=== PATIENT | female | born 1955 | race Hispanic/Latino ===

== ENCOUNTER 2018-08-15 15:00 | Emergency (ER) | payer OTHER ==
--- NOTE | 2018-08-15 15:48 | RAD REPORT ---
EXAM DESCRIPTION: CT - Head Brain Wo Cont - 08/15/2018 3:35 pm CLINICAL HISTORY: head injury;Headache COMPARISON: No comparisons TECHNIQUE: All CT scans are performed using dose optimization technique as appropriate and may inclu de automated exposure control or mA/KV adjustment according to patient size. FINDINGS: No intracranial hemorrhage, hydrocephalus or extra-axial fluid collection.No areas of brai n edema or evidence of midline shift. The paranasal sinuses and mastoids are clear. The calvarium is intact. IMPRESSION: No acute intracranial abnormality.
--- NOTE | 2018-08-15 16:40 | EDPHYS ---
Physician Documentation [facility] Name: Seble Tirado Age: 63 yrs Sex: Female : 1955 Arrival Date: 08/15/2018 Time: 15:01 Bed 26 Private MD: Becki Dillon ED Physician Rom Ferro HPI: 08/15 15:29 This 63 yrs old Female presents to ER via Ambulatory with complaints of Fall rn Injury - x2 days ago, Headache. 15:37 Details of fall: The patient fell from an upright position, while walking. Onset: The rn symptoms/episode began/occurred 2 day(s) ago. Associated injuries: The patient sustained injury to the head. Severity of symptoms: At their worst the symptoms were mild, in the emergency department the symptoms are unchanged. 15:37 The patient has not experienced similar symptoms in the past. Reports hit head 2 days rn ago, still having pain in back and front of head, also has a little chest pain, intermittent, when bends over. NO sob/cough. No radiation. No LOC. Not on blood thinners. . Historical: - Allergies: 15:17 PENICILLINS; hj - Home Meds: 15:17 Vitamin D Oral [Active]; vitamin E Oral [Active]; hj - PMHx: 15:17 None; hj - PSHx: 15:17 None; hj - Immunization history:: Adult Immunizations up to date. - Social history:: Smoking status: Patient/guardian denies using tobacco, Patient/guardian denies using alcohol. - Ebola Screening: : Patient negative for fever greater than or equal to 101.5 degrees Fahrenheit, and additional compatible Ebola Virus Disease symptoms Patient denies exposure to infectious person Patient denies travel to an Ebola-affected area in the 21 days before illness onset. - Family history:: not pertinent. - Hospitalizations: : No recent hospitalization is reported. ROS: 15:37 Constitutional: Negative for fever, chills, and weight loss, Eyes: Negative for injury, rn pain, redness, and discharge, Neck: Negative for injury, pain, and swelling, Cardiovascular: Negative for palpitations, and edema, Respiratory: Negative for shortness of breath, cough, wheezing, and pleuritic chest pain, Abdomen/GI: Negative for abdominal pain, nausea, vomiting, diarrhea, and constipation, MS/Extremity: Negative for injury and deformity, Skin: Negative for injury, rash, and discoloration, Neuro: Negative for weakness, numbness, tingling, and seizure. Exam: 15:39 Constitutional: This is a well developed, well nourished patient who is awake, alert, rn and in no acute distress. Head/Face: Normocephalic, atraumatic. Cardiovascular: Regular rate and rhythm with a normal S1 and S2. No pulse deficits. Respiratory: Lungs have equal breath sounds bilaterally, clear to auscultation. No increased work of breathing, no retractions or nasal flaring. Abdomen/GI: Soft, non-tender Skin: Warm, dry with normal turgor. Normal color with no rashes, no lesions, and no evidence of cellulitis. MS/ Extremity: Pulses equal, no cyanosis. Neurovascular intact. Full, normal range of motion. Equal circumference. Neuro: Awake and alert, GCS 15, oriented to person, place, time, and situation. Cranial nerves II-XII grossly intact. Motor strength 5/5 in all extremities. Sensory grossly intact. Cerebellar exam normal. Normal gait. Vital Signs: 15:18 BP 112 / 69; Pulse 72; Resp 18; Temp 98.2(TE); Pulse Ox 100% on R/A; Weight 48.99 kg; hj Height 5 ft. 1 in. (154.94 cm); Pain 1/10; 15:18 Body Mass Index 20.41 (48.99 kg, 154.94 cm) hj MDM: 15:21 Patient medically screened. rn 16:39 Differential diagnosis: closed head injury, contusion, fracture, sprain, strain. Data rn reviewed: vital signs, nurses notes, EKG, radiologic studies, CT scan, plain films, and as a result, I will discharge patient. Counseling: I had a detailed discussion with the patient and/or guardian regarding: the historical points, exam findings, and any diagnostic results supporting the discharge/admit diagnosis, radiology results, the need for outpatient follow up, to return to the emergency department if symptoms worsen or persist or if there are any questions or concerns that arise at home. Response to treatment: the patient's symptoms have mildly improved after treatment, and as a result, I will discharge patient. Special discussion: Based on the patient's history, exam and DX evaluation, there is no indication for emergent intervention or inpatient TX. It is understood by the patient/guardian that if the SXs persist or worsen they need to return immediately for re-evaluation. I discussed with the patient/guardian in detail that at this point there is no indication for admission to the hospital. It is understood, however, that if the symptoms persist or worsen the patient needs to return immediately for re-evaluation. 08/15 15:26 Order name: CT Head Brain wo Cont; Complete Time: 16:39 rn 08/15 15:39 Order name: XRAY Chest Pa And Lat (2 Views); Complete Time: 17:06 rn 08/15 15:26 Order name: EKG; Complete Time: 15:27 rn 08/15 15:26 Order name: EKG - Nurse/Tech; Complete Time: 15:51 rn Administered Medications: No medications were administered Disposition: 08/15/18 16:40 Discharged to Home. Impression: Superficial injury of head. - Condition is Stable. - Discharge Instructions: Head Injury, Adult. - Medication Reconciliation Form, Thank You Letter, Antibiotic Education, Prescription Opioid Use form. - Follow up: Private Physician; When: As needed; Reason: Recheck today's complaints, Re-evaluation by your physician. - Problem is new. - Symptoms have improved. Signatures: Dispatcher [employer] EDMS Kacy Oreilly RN RN aj1 Rom Ferro MD MD rn Joaquin, Henry RN GARY Corrections: (The following items were deleted from the chart) 17:22 16:40 08/15/2018 16:40 Discharged to Home. Impression: Superficial injury of head. aj1 Condition is Stable. Forms are Medication Reconciliation Form, Thank You Letter, Antibiotic Education, Prescription Opioid Use. Follow up: Private Physician; When: As needed; Reason: Recheck today's complaints, Re-evaluation by your physician. Problem is new. Symptoms have improved. rn
--- NOTE | 2018-08-15 16:40 | ER ---
Nurse's Notes [facility] Name: Seble Tirado Age: 63 yrs Sex: Female : 1955 Arrival Date: 08/15/2018 Time: 15:01 Bed 26 Private MD: Becki Dillon Diagnosis: Superficial injury of head Presentation: 08/15 15:14 Presenting complaint: Patient states: i fell last Tuesday, i was walking, i slipped and hj fell and hit the back of my head, denies LOC; now i still have pain on the back of my head; denies nausea and vomiting;. Transition of care: patient was not received from another setting of care. Onset of symptoms was August 15, 2018. Risk Assessment: Do you want to hurt yourself or someone else? Patient reports no desire to harm self or others. Initial Sepsis Screen: Does the patient meet any 2 criteria? No. Patient's initial sepsis screen is negative. Does the patient have a suspected source of infection? No. Patient's initial sepsis screen is negative. Care prior to arrival: None. 15:14 Method Of Arrival: Ambulatory 15:14 Acuity: TIFFANIE 4 hj Triage Assessment: 15:17 General: Appears in no apparent distress. uncomfortable, Behavior is calm, cooperative, hj appropriate for age. Pain: Complains of pain in scalp Pain currently is 1 out of 10 on a pain scale. Historical: - Allergies: 15:17 PENICILLINS; hj - Home Meds: 15:17 Vitamin D Oral [Active]; vitamin E Oral [Active]; hj - PMHx: 15:17 None; hj - PSHx: 15:17 None; hj - Immunization history:: Adult Immunizations up to date. - Social history:: Smoking status: Patient/guardian denies using tobacco, Patient/guardian denies using alcohol. - Ebola Screening: : Patient negative for fever greater than or equal to 101.5 degrees Fahrenheit, and additional compatible Ebola Virus Disease symptoms Patient denies exposure to infectious person Patient denies travel to an Ebola-affected area in the 21 days before illness onset. - Family history:: not pertinent. - Hospitalizations: : No recent hospitalization is reported. Screenin:18 Abuse screen: Denies threats or abuse. Denies injuries from another. Nutritional hj screening: No deficits noted. Tuberculosis screening: No symptoms or risk factors identified. Fall Risk Fall in past 12 months (25 points). Assessment: 16:11 General: Appears in no apparent distress. comfortable, Behavior is calm, cooperative, aj1 agitated. Pain: Complains of pain in scalp Pain does not radiate. Pain currently is 1 out of 10 on a pain scale. Neuro: Level of Consciousness is awake, alert, obeys commands, Oriented to person, place, time, situation, Speech is normal, Facial symmetry appears normal. Cardiovascular: Patient's skin is warm and dry. Respiratory: Airway is patent Respiratory effort is even, unlabored, Respiratory pattern is regular, symmetrical. GI: No signs and/or symptoms were reported involving the gastrointestinal system. : No signs and/or symptoms were reported regarding the genitourinary system. EENT: No signs and/or symptoms were reported regarding the EENT system. Derm: No signs and/or symptoms reported regarding the dermatologic system. Skin is pink, warm \T\ dry. normal. Musculoskeletal: No signs and/or symptoms reported regarding the musculoskeletal system. Circulation, motion, and sensation intact. 17:22 Reassessment: Patient appears in no apparent distress at this time. No changes from aj1 previously documented assessment. Patient and/or family updated on plan of care and expected duration. Pain level reassessed. Patient is alert, oriented x 3, equal unlabored respirations, skin warm/dry/pink. Vital Signs: 15:18 BP 112 / 69; Pulse 72; Resp 18; Temp 98.2(TE); Pulse Ox 100% on R/A; Weight 48.99 kg; hj Height 5 ft. 1 in. (154.94 cm); Pain 1/10; 15:18 Body Mass Index 20.41 (48.99 kg, 154.94 cm) ED Course: 15:01 Patient arrived in ED. as 15:02 Becki Dillon MD is Private Physician. as 15:16 Triage completed. hj 15:18 Arm band placed on right wrist. hj 15:18 Patient has correct armband on for positive identification. Bed in low position. Call hj light in reach. Side rails up X 1. 15:21 Rom Ferro MD is Attending Physician. rn 15:[address] vr 15:36 CT Head Brain wo Cont In Process Unspecified. EDMS 15:36 CT completed. Patient tolerated procedure well. Patient moved back from CT. vr 15:45 EKG done, by business technology professor. reviewed by Rom Ferro MD. sm3 16:09 Kacy Oreilly, RN is Primary Nurse. aj1 16:11 No provider procedures requiring assistance completed. aj1 16:20 XRAY Chest Pa And Lat (2 Views) In Process Unspecified. EDMS 17:22 Patient did not have IV access during this emergency room visit. aj1 Administered Medications: No medications were administered Outcome: 16:40 Discharge ordered by . rn 17:22 Discharged to home ambulatory. aj1 17:22 Condition: good 17:22 Discharge instructions given to patient, family, Instructed on discharge instructions, follow up and referral plans. Demonstrated understanding of instructions, follow-up care. 17:22 Patient left the ED. aj1 Signatures: Dispatcher [employer] EDMS Kacy Oreilly, RN RN aj1 Lizzette Tripathi Roman, MD MD rn Davis, Victoria Eliot Paez RN RN hj Montes, Shakira [facility] Corrections: (The following items were deleted from the chart) 15:19 15:17 Pain: Complains of pain in scalp Pain currently is 4 out of 10 on a pain scale. [facility] 15:20 15:18 Pulse 72bpm; Resp 18bpm; Pulse Ox 100% RA; Temp 98.2F Temporal; 48.99 kg; Height hj 5 ft. 1 in.; BMI: 20.4; Pain 1/10; hj
--- NOTE | 2018-08-15 17:04 | RAD REPORT ---
EXAM DESCRIPTION: RAD - Chest Pa And Lat (2 Views) - 08/15/2018 4:22 pm CLINICAL HISTORY: Fall, chest pain, shortness of breath COMPARISON: None. TECHNIQUE: PA and lateral views of the chest were obtained. FINDINGS: The lungs are mildly fibrotic as a baseline. Patient has an increase in retrosternal space and flattening of the hemidiaphragm on the lateral projection. Posterior costophrenic angle blunting is favored to be from chronic disease rather than small bilateral pleural effusions. No focal lung p arenchymal process. No failure or volume overload. Heart size is normal and central vasculature is within normal limits. No pleural effusion or pneumothorax seen. No acute bone finding. Scoliosis ch anges present. No aortic abnormality. IMPRESSION: Patient has underlying COPD findings with no focal pneumonia or other acute cardiopulmon silvio finding.
--- NOTE | 2018-08-15 18:03 | EKG ---
Test Date: 2018-08-15 Test Time: 15:41:01 High Speed Operator: SKY MEASUREMENT RESULTS: Intervals: Rate: 67 KS: 136 QRSD: 90 QT: 412 QTc: 435 [place]: P: 66 KS: 136 QRS: 81 T: 64 INTERPRETIVE STATEMENTS: Normal sinus rhythm Normal ECG No previous ECG available for comparison Electronically Signed On 08-15-18 18:02:51 LOCKSTITCH LINING SETTER by Brad Ruiz
== END 2018-08-15 17:22 | disposition home or self-care (01) ==
LOC: ER 15:00
DX: S00.90XA Unspecified superficial injury of unspecified part of head, initial encounter (principal); W01.0XXA Fall on same level from slipping, tripping and stumbling without subsequent striking against object, initial encounter; Y93.9 Activity, unspecified; Y92.9 Unspecified place or not applicable; Z88.0 Allergy status to penicillin
CPT/HCPCS: 70450; 71046; 93005; 99284

== ENCOUNTER 2022-09-21 02:07 | Emergency (ER) | payer OTHER ==
--- OUTSIDE RECORDS SUMMARY | 2022-09-21 02:10 | XMS REPORT | Continuity of Care Document ---
:1955 Author Organization [facility] t Address [address] [place] [address] Care Team Providers Name Role Phone Unknown, Physician Primary Care Physician Unavailable SARITA ARCOS Attending Clinician Unavailable LILIYA VERA Attending Clinician Unavailable GARDENIA CASPER Attending Clinician Unavailable Mustapha Attending Clinician Unavailable Shannon Flood Attending Clinician Unavailable Aisha Attending Clinician Unavailable Pcp, Patient Does Not Have A Attending Clinician [phone] Only, Adc Test Attending Clinician Unavailable Ige-Oleg Attending Clinician Unavailable ALEXANDRO FIELDS Attending Clinician Unavailable Alexandro Fields MD Attending Clinician Doctor Unassigned, [place] Attending Clinician Unavailable Mustapha Admitting Clinician Unavailable Shannon Flood Admitting Clinician Unavailable Aisha Admitting Clinician Unavailable Ige-Yenifer_KENDAL Admitting Clinician Unavailable ALEXANDRO FIELDS Admitting Clinician Unavailable Payers Payer Name Policy Type Policy Number Effective Date Expiration Date S marie WELLCARE/WELLCARE [id number] 2020 [facility] 00:00:00 WELLCARE [facility] [id number] 2019 [employer] 00:00:00 (MEDICARE REPLACEMENT/ADVANT AGE - HMO) WELLCARE [facility] [id number] 2019 [employer] 00:00:00 [facility] [id number] 2015 CHOICE 00:00:00 Problems Condition Condition Condition Status Onset Resolution Last Treating Co mments Source Name Details Category Date Date Treatment Clinician Date Helicobact Helicobact Problem Active [facility] er pylori er Pylori 1-15 Fami ly gastrointe Gastrointe 00:00: Pr actic stinal stinal 00 e tract Tract infection Infection Cervical Cervical Problem Active 2019-10 [facility] radiculopa Radiculopa 2-04 Fa manda thy thy 00:00: Practic 00 e Herpes Herpes Problem Active [facility] labialis Labialis 9-04 Family 00:00: Practic 00 e Visual Visual Problem Active [facility] impairment Impairment 9-04 Fa manda 00:00: Practic 00 e Hearing Hearing Problem Active [facility] loss Loss 9-04 Family 00:00: Practic 00 e Lesion of Lesion of Problem Active Sebastián reyes skin of Skin of 9-04 Family face Face 00:00: Practic 00 e Degenerati Degenerati Problem Active [facility] ve joint ve Joint 9-04 Family disease of Disease of 00:00: Pr actic hand Hand 00 e Bone spur Bone Spur Problem Active Sebastián reyes of of 6-09 Family vertebra Vertebra 00:00: Practi c 00 e Gastroesop Gastroesop Problem Active [facility] hageal hageal 6-08 Family reflux Reflux 00:00: Practic disease Disease 00 e Diverticul Diverticul Problem Active [facility] itis itis 6-08 Family 00:00: Practic 00 e At risk At Risk Problem Active [facility] for falls for Falls 6-08 Fami ly 00:00: Practic 00 e Allergies, Adverse Reactions, Alerts Allergy Allergy Status Severity Reaction(s) Onset Inactive Treating Comm ents Source Name Type Date Date Clinician Penicill Propensi Active [facility] ins ty to 06-16 Health adverse 00:00: reaction 00 s No Known DA Active [facility] Allergie 06-19 [place] [facility] PEN[facility]ILL Allergy Active [facility] INS to Family substanc Practic e e NO KNOWN Drug Active [facility] HARRISON Class ity of S [facility] Social History Social Habit Start Date Stop Date Quantity Comments Source History [facility] Alcohol Std Drinks History [facility] Alcohol Binge History [facility] Alcohol Comment Exposure to Not sure [facility] SARS-CoV-2 (event) Alcohol intake 2021-07-23 2021-07-23 Lifetime [place] [facility] 00:00:00 00:00:00 non-drinker (finding) History [facility] 2021-07-23 2021-07-23 1 [facility] Alcohol Frequency 00:00:00 00:00:00 Tobacco use and 2021-06-16 2021-06-16 Smokeless tobacco [facility] exposure 00:00:00 00:00:00 non-user Sex Ass[birth year] At [birth year] F [facility] 00:00:00 00:00:00 Smoking Status Start Date Stop Date Source Never smoked tobacco [facility] Medications Ordered Filled Start Stop Current Ordering Indication Dosage Frequency Signature Comments Components Source Medication Medication Date Date Medication? Clinician (SIG) Name Name pantoprazol 2020-10 Yes 40mg Take 40 mg UT e 0-14 by mouth 1 Health (ProtoNix) 10:13: (one) time 40 MG EC 15 each day tablet before breakfast. Do not crush, chew, or split. sucralfate 2020-10 Yes 1g Q.25D Take 1 g [facility] (Carafate) 0-14 by mouth 4 [facility] l[facility] 1 g tablet 10:13: (four) 15 times a day. alendronate alendronate No alendronat [facility] 70 mg 70 mg e 70 mg Family tablet Take tablet Take tablet Practic 1 tablet 1 tablet Take 1 e every week every week tablet by oral by oral every week route. route. by oral route. estradiol estradiol No estradiol [facility] 0.01% (0.1 0.01% (0.1 0.01% (0.1 Family mg/gram) mg/gram) mg/gram) Pra ctic vaginal vaginal vaginal e cream cream cream INSERT 0.5 INSERT 0.5 INSERT 0.5 GRAM GRAM GRAM VAGINALLY VAGINALLY VAGINALLY DAILY DAILY DAILY ketoconazol ketoconazol No ketoconazo [facility] e 2 % e 2 % le 2 % [facility] topical topical topical Practi c cream APPLY cream APPLY cream e TO RASH ON TO RASH ON APPLY TO FEET TWICE FEET TWICE RASH ON DAILY DAILY FEET TWICE NEEDED NEEDED DAILY UNTIL UNTIL NEEDED FUNGUS FUNGUS UNTIL RESOLVED RESOLVED FUNGUS RESOLVED pantoprazol pantoprazol No pantoprazo [facility] e 40 mg e 40 mg le 40 mg Famil y tablet,theresa tablet,theresa tablet,del Practic yed release yed release ayed e TAKE 1 TAKE 1 release TABLET BY TABLET BY TAKE 1 MOUTH EVERY MOUTH EVERY TABLET BY DAY DAY MOUTH EVERY DAY Plenvu 140 Plenvu 140 No Plenvu 140 [facility] gram-9 gram-9 gram-9 Family gram-5.2 gram-5.2 gram-5.2 Pra ctic gram powder gram powder gram e packs TAKE packs TAKE powder DIRECTED DIRECTED packs TAKE DIRECTED Immunizations Ordered Immunization Filled Immunization Date Status Commen ts Source Name Name influenza, high-dose, influenza, high-dose, 2021-10-23 Completed [facility] quadrivalent quadrivalent 13:26:39 Practice pneumococcal pneumococcal 2021-04-01 Completed [facility] manda polysaccharide PPV23 polysaccharide PPV23 13:22:00 Practice COVID-19, mRNA, COVID-19, mRNA, 2021-01-13 Completed [facility] Family LNP-S, PF, 100 LNP-S, PF, 100 00:00:00 Practi ce mcg/0.5 mL dose mcg/0.5 mL dose (Moderna) (Moderna) COVID-19, mRNA, COVID-19, mRNA, 2020-12-08 Completed [facility] age Family LNP-S, PF, 100 LNP-S, PF, 100 00:00:00 Practi ce mcg/0.5 mL dose mcg/0.5 mL dose (Moderna) (Moderna) influenza, high-dose, influenza, high-dose, 2020-07-28 Completed [facility] quadrivalent quadrivalent 11:49:00 Practice pneumococcal, pneumococcal, 2019-07-09 Completed [facility] unspecified unspecified 00:00:00 Practice formulation formulation influenza, influenza, 2019-07-09 Completed [facility] injectable, injectable, 00:00:00 Practice quadrivalent quadrivalent Vital Signs Vital Name Observation Time Observation Value Comments Source BP Diastolic 2022-06-11 00:00:00 63 mm[Hg] [facility] Height 2022-06-11 00:00:00 61 [in_i] [facility] BMI (Body Mass Index) 2022-06-11 00:00:00 20.4 kg/m2 [facility] BP Systolic 2022-06-11 00:00:00 101 mm[Hg] [facility] Body Weight 2022-06-11 00:00:00 108 [lb_av] [facility] BP Diastolic 2022-04-01 00:00:00 62 mm[Hg] [facility] Height 2022-04-01 00:00:00 61 [in_i] [facility] BMI (Body Mass Index) 2022-04-01 00:00:00 20.4 kg/m2 [facility] Practice BP Systolic 2022-04-01 00:00:00 105 mm[Hg] [facility] Body Weight 2022-04-01 00:00:00 108 [lb_av] [facility] Height 2021-11-24 00:00:00 61 [in_i] [facility] BMI (Body Mass Index) 2021-11-24 00:00:00 20.6 kg/m2 [facility] Body Weight 2021-11-24 00:00:00 109 [lb_av] [facility] BP Diastolic 2021-10-23 00:00:00 66 mm[Hg] [facility] Height 2021-10-23 00:00:00 61 [in_i] [facility] BMI (Body Mass Index) 2021-10-23 00:00:00 20.6 kg/m2 [facility] BP Systolic 2021-10-23 00:00:00 110 mm[Hg] [facility] Body Weight 2021-10-23 00:00:00 109 [lb_av] [facility] Practice Systolic blood 2021-07-23 15:07:00 105 mm[Hg] [facility] Diastolic blood 2021-07-23 15:07:00 68 mm[Hg] [facility] Heart rate 2021-07-23 15:07:00 71 [facility]min [facility] Body temperature 2021-07-23 15:07:00 36.61 Tess [facility] Body height 2021-07-23 15:07:00 [facility].4 cm [facility] weight 2021-07-23 15:07:00 [facility]499 [facility] BMI 2021-07-23 15:07:00 23.09 kg/m2 [facility] BP Diastolic 2021-06-02 00:00:00 84 mm[Hg] [facility] Height 2021-06-02 00:00:00 61 [in_i] [facility] BMI (Body Mass Index) 2021-06-02 00:00:00 20.7 kg/m2 [facility] BP Systolic 2021-06-02 00:00:00 129 mm[Hg] [facility] Body Weight 2021-06-02 00:00:00 109.6 [lb_av] [facility] BP Diastolic 2021-04-01 00:00:00 75 mm[Hg] [facility] Height 2021-04-01 00:00:00 61 [in_i] [facility] BMI (Body Mass Index) 2021-04-01 00:00:00 21 kg/m2 [facility] BP Systolic 2021-04-01 00:00:00 115 mm[Hg] [facility] Body Weight 2021-04-01 00:00:00 111 [lb_av] [facility] BP Diastolic 2021-03-02 00:00:00 69 mm[Hg] [facility] Height 2021-03-02 00:00:00 61 [in_i] [facility] BMI (Body Mass Index) 2021-03-02 00:00:00 21.4 kg/m2 [facility] BP Systolic 2021-03-02 00:00:00 106 mm[Hg] [facility] Body Weight 2021-03-02 00:00:00 113 [lb_av] [facility] BP Diastolic 2021-02-19 00:00:00 57 mm[Hg] [facility] Height 2021-02-19 00:00:00 61 [in_i] [facility] BMI (Body Mass Index) 2021-02-19 00:00:00 21.2 kg/m2 [facility] BP Systolic 2021-02-19 00:00:00 99 mm[Hg] [facility] Body Weight 2021-02-19 00:00:00 112 [lb_av] [facility] BP Diastolic 2020-11-21 00:00:00 73 mm[Hg] [facility] Height 2020-11-21 00:00:00 61 [in_i] [facility] BMI (Body Mass Index) 2020-11-21 00:00:00 21.5 kg/m2 [facility] Practice BP Systolic 2020-11-21 00:00:00 123 mm[Hg] [facility] Practice Body Weight 2020-11-21 00:00:00 114 [lb_av] [facility] Practice BP Diastolic 2020-09-12 00:00:00 64 mm[Hg] [facility] Practice Height 2020-09-12 00:00:00 61 [in_i] [facility] Practice BMI (Body Mass Index) 2020-09-12 00:00:00 21.5 kg/m2 [facility] Practice BP Systolic 2020-09-12 00:00:00 107 mm[Hg] [facility] Practice Body Weight 2020-09-12 00:00:00 114 [lb_av] [facility] Practice Height 2020-06-13 00:00:00 61 [in_i] [facility] Practice BMI (Body Mass Index) 2020-06-13 00:00:00 21.5 kg/m2 [facility] Body Weight 2020-06-13 00:00:00 114 [lb_av] [facility] Practice Height 2020-03-17 00:00:00 61 [in_i] [facility] Practice BMI (Body Mass Index) 2020-03-17 00:00:00 21.5 kg/m2 [facility] Practice Body Weight 2020-03-17 00:00:00 114 [lb_av] [facility] Practice Procedures Procedure Date / Time Performing Clinician Source Performed ankle brachial index 2022-04-01 00:00:00 [facility] DEXA, axial skeleton 2022-04-01 00:00:00 [facility] Colonoscopy & Polypectomy 2022-03-12 00:00:00 Vi llage [facility] Practice bone density 2021-04-01 00:00:00 [facility] Practice electrocardiogram 2021-02-19 00:00:00 [facility] Fa manda Practice US, ABDOMINAL COMPLETE 2021-02-19 00:00:00 [facility] Practice MAMMO, screening, digital, 2020-11-21 [facility] michael Practice Plan of Care Planned Activity Planned Date Details Comments Source Diagnostic Test 2022-06-11 CBC w/ auto diff [facility] Family Pending 00:00:00 [code = CBC w/ auto Practice diff] Diagnostic Test 2022-06-11 CMP, serum or plasma Vill age Family Pending 00:00:00 [code = CMP, serum Practice or plasma] Diagnostic Test 2022-06-11 urinalysis complete, Vill age Family Pending 00:00:00 reflex culture [code Practic e = urinalysis complete, reflex culture] Diagnostic Test 2022-06-11 amylase, serum or [facility] Pending 00:00:00 plasma [code = Practice amylase, serum or plasma] Diagnostic Test 2022-06-11 lipase, serum or [facility] Family Pending 00:00:00 plasma [code = Practice lipase, serum or plasma] Future Appointment 2023-04-01 Shannon Flood [facility] age Family 00:00:[id number], [place] [address] [facility] Practice Encounters Start End Encounter Admission Attending Care Care Encounter Source Date/Time Date/Time Type Type Clinicians Facility Department ID 2021-09-18 Outpatient ISRRAEL, [facility] [id number] [place] 15:40:18 [facility] 2021-07-23 Outpatient VERA, [facility] [id number] [place] 11:07:52 [facility] 2021-07-17 Outpatient VERA, [facility] [id number] [place] 09:21:18 [facility] 2021-04-08 Outpatient PENNIE, [facility] [id number] [place] 10:19:30 [facility] 2022-09-20 2022-09-20 Outpatient Kane-Grace_M VFP VFP [id number] [facility] 00:00:00 00:00:00 [id number] Family Practic e 2022-06-13 2022-06-13 Outpatient Middleton-Grace_M VFP VFP [id number] [facility] 00:00:00 00:00:00 [id number] Family Practic e 2022-06-11 2022-06-11 Outpatient Kane-Grace_M VFP VFP [id number] [facility] 00:00:00 00:00:00 [id number] Family Practic e 2022-06-11 2022-06-11 Shannon O VFP [place] - [id number] [facility] 00:00:00 00:00:00 Diane Flood MD: [id number] Medical - Prac tic Shadow AMRIK_Mari brizuela [facility], [address], [place] [address] , Ph. 2022-04-28 2022-04-28 [facility]patient [facility] [id number] [facility] 08:00:00 08:00:00 Shannon 81 [facility] 2022-04-17 2022-04-17 Outpatient Middleton-Gor_M_ VFP VFP [id number] [facility] 00:00:00 00:00:00 DANNY Family Practic e 2022-04-08 2022-04-08 Outpatient Middleton-Gor_M VFP VFP [id number] [facility] 03:59:00 03:59:00 [id number] Family Practic e 2022-04-01 2022-04-01 Outpatient Middleton-Gor_M VFP VFP [id number] [facility] 12:43:00 12:43:00 [id number] Family Practic e 2022-04-01 2022-04-01 Shannon O VFP [place] - [id number] [facility] 00:00:00 00:00:00 Remigio [facility] Fami ly MD: [id number] Medical - Prac tic Shadow AMRIK_Mari e [facility], [address], [place] [address] , Ph. 2022-03-18 2022-03-18 Outpatient ADÁN Flood [facility] [id number] [facility] 08:00:00 08:30:00 Shannon 43 [facility] 2021-12-31 2021-12-31 Outpatient Middleton-Gor_M VFP VFP [id number] [facility] 09:33:00 09:33:00 [id number] Family Practic e 2021-11-27 2021-11-27 Outpatient Middleton-Gor_M VFP VFP [id number] Village 12:47:00 12:47:00 [id number] Family Practic e 2021-11-27 2021-11-27 Outpatient Middleton-Gor_M_ VFP VFP [id number] [facility] 12:47:00 12:47:00 DANNY [id number] Family Practic e 2021-11-242021-11-24 Outpatient Middleton-Gor_M VFP VFP [id number] [facility] 04:42:00 04:42:00 Family Practic e 2021-11-24 2021-11-24 Shannon O VFP - [id number] [facility] 00:00:00 00:00:00 [facility] LORA: [id number] Medical - Prac tic Shadow VM_HOU_Shad e [facility], [address], [place] [address] , Ph. 2021-11-23 2021-11-23 Outpatient Middleton-Gor_M VFP VFP [id number] [facility] 10:56:00 10:56:00 Family Practic e 2021-10-28 2021-10-28 Outpatient Middleton-Gor_M_ VFP VFP [id number] [facility] 04:27:00 04:27:00 DANNY Family Practic e 2021-10-28 2021-10-28 Outpatient Middleton-Gor_M_ VFP VFP [id number] [facility] 04:27:00 04:27:00 DANNY Family Practic e 2021-10-23 2021-10-23 Outpatient Middleton-Gor_M VFP VFP [id number] [facility] 01:12:00 01:12:00 Family Practic e 2021-10-23 2021-10-23 Shannon O VFP - [id number] [facility] 00:00:00 00:00:00 Remigio [facility] Tripp finnegan MD: [id number] Medical - Prac tic Shadow VM_HOU_Shad e [facility], [address], [place] [address] , Ph. 2021-09-10 2021-09-10 Outpatient Middleton-Gor_M VFP VFP [id number] [facility] 05:40:00 05:40:00 Family Practic e 2021-07-23 2021-07-23 Office VERONICA Vera [facility] [id number] [place] 09:42:22 11:06:[address] [facility] [id number] Bunny BELLA 1 [id number] 2021-06-30 2021-06-30 Outpatient Middleton-Gor_M VFP VFP [id number] [facility] 08:04:00 08:04:00 [id number] Family Practic e 2021-06-30 2021-06-30 Outpatient Middleton-Gor_M VFP VFP [id number] [facility] 08:04:00 08:04:00 [id number] Family Practic e 2021-06-05 2021-06-05 Outpatient Middleton-Gor_M VFP VFP [id number] [facility] 05:24:00 05:24:00 [id number] Family Practic e 2021-06-02 2021-06-02 Outpatient Middleton-Gor_M VFP VFP [id number] [facility] 11:04:00 11:04:00 [id number] Family Practic e 2021-06-02 2021-06-02 Outpatient Middleton-Gor_M VFP VFP [id number] [facility] 11:04:00 11:04:00 [id number] Family Practic e 2021-06-02 2021-06-02 Shannon O VFP [place] - [id number] [facility] 00:00:00 00:00:00 [facility] Tripp finnegan MD: [id number] Medical - Prac tic Shadow VM_BARRYU_Kamlesh e [facility], [address], [place] [address] , Ph. 2021-04-08 2021-04-08 Outpatient Middleton-Gor_M VFP VFP [id number] [facility] 06:26:00 06:26:00 [id number] Family Practic e 2021-04-08 2021-04-08 Outpatient Middleton-Gor_M_ VFP VFP [id number] [facility] 06:26:00 06:26:00 [place] [id number] Family Practic e 2021-04-08 2021-04-08 Outpatient Middleton-Gor_M VFP VFP [id number] [facility] 06:26:00 06:26:00 [id number] Family Practic e 2021-04-06 2021-04-06 Outpatient ADÁN Flood [facility] [id number] [facility] 09:57:00 09:57:00 Shannon 33 Jack rao [facility] 2021-04-01 2021-04-01 Outpatient Middleton-Gor_M VFP VFP [id number] [facility] 01:17:00 01:17:00 [id number] Family Practic e 2021-04-01 2021-04-01 Outpatient Middleton-Gor_M VFP VFP [id number] [facility] 01:17:00 01:17:00 [id number] Family Practic e 2021-04-01 2021-04-01 Shannon O VFP [place] - [id number] [facility] 00:00:00 00:00:00 [facility]ig[facility], [facility] LORA: [id number] Medical - Prac tic Shadow VM_HOU_Shad e Unga [facility], [address], [place] [address] , Ph. 2021-03-05 2021-03-05 Outpatient Middleton-Gor_M_ VFP VFP [id number] [facility] 11:16:00 11:16:00 [place] [id number] Family Practic e 2021-03-05 2021-03-05 Outpatient Middleton-Gor_M_ VFP VFP [id number] [facility] 11:16:00 11:16:00 [place] [id number] Family Practic e 2021-03-05 2021-03-05 Outpatient Middleton-Gor_M VFP VFP [id number] [facility] 11:16:00 11:16:00 [id number] Family Practic e 2021-03-05 2021-03-05 Outpatient Middleton-Gor_M VFP VFP [id number] [facility] 11:16:00 11:16:00 [id number] Family Practic e 2021-03-02 2021-03-02 Outpatient Middleton-Gor_M VFP VFP [id number] [facility] 03:55:00 03:55:00 [id number] Family Practic e 2021-03-02 2021-03-02 Erna N VFP [place] - [id number] [facility] ill[facility] 00:00:00 00:00:00 ROSA ELENA [facility] [address] Medical - Practi c Shadow VM_HOU_Shad e Un[address] ow Unga [facility], [address], [place] [address] , Ph. 2021-02-26 2021-02-26 Outpatient Middleton-Gor_M VFP VFP [id number] [facility] 10:22:00 10:22:00 [id number] Family Practic e 2021-02-19 2021-02-19 Outpatient Middleton-Gor_M VFP VFP [id number] [facility] 02:06:00 02:06:00 [id number] Family Practic e 2021-02-19 2021-02-19 Erna N VFP [place] - [id number] [facility] 00:00:00 00:00:00 ROSA ELENA Bustamante: [facility] [id number] Medical - Practi c Shadow VM_HOU_Shad e [address], [place] [address] , Ph. 2021-01-01 2021-01-01 Letter Pcp, DHAVAL [id number] 00:00:00 00:00:00 (Out) Patient BHAVIN [id number] Does [facility] [id number] Have A [id number] 2020-12-31 2020-12-31 Laboratory Only, [facility] [id number] 07:56:40 08:11:40 Only Test [place] [id number] [place] [id number] [place] [id number] 2020-12-31 2020-12-31 Outpatient R [facility] [id number] Univers 08:00:00 08:00:00 ity of [facility] 2020-12-24 2020-12-24 Outpatient Middleton-Gor_M VFP VFP [id number] [facility] 09:40:00 09:40:00 [id number] Family Practic e 2020-12-24 2020-12-24 Outpatient Middleton-Gor_M VFP VFP [id number] [facility] 09:40:00 09:40:00 [id number] Family Practic e 2020-12-24 2020-12-24 Outpatient Middleton-Gor_M VFP VFP [id number] [facility] 09:40:00 09:40:00 [id number] Family Practic e 2020-12-24 2020-12-24 Outpatient EL Remigio, HCAPM HCAPM [id number] [facility] 03:58:48 03:58:48 Shannon rivera [facility] 2020-11-25 2020-11-25 Outpatient Kane-Grace_M_ VFP VFP [id number] [facility] 07:19:00 07:19:00 [facility] [id number] Family Practic e 2020-11-21 2020-11-21 Outpatient Kane-Grace_M VFP VFP [id number] [facility] 04:54:00 04:54:00 [id number] Family Practic e 2020-11-21 2020-11-21 Shannon O VFP [place] - [id number] [facility] 00:00:00 00:00:00 Daine Flood MD: [id number] Medical - Prac tic Shadow VM_ROD_Enocd e [facility], [address] [address] , Ph. 2020-09-24 2020-09-24 Outpatient Kane-Grace_M_ VFP VFP [id number] [facility] 01:34:00 01:34:00 [facility] [id number] Family Practic e 2020-09-24 2020-09-24 Outpatient Kane-Grace_M_ VFP VFP [id number] [facility] 01:34:00 01:34:00 [facility] [id number] Family Practic e 2020-09-16 2020-09-16 Outpatient Kane-Grace_M VFP VFP [id number] [facility] 04:59:00 04:59:00 [id number] Family Practic e 2020-09-16 2020-09-16 Outpatient Kane-Gor_M VFP VFP [id number] [facility] 04:59:00 04:59:00 [id number] Family Practic e 2020-09-12 2020-09-12 Outpatient Kane-Gor_M_ VFP VFP [id number] [facility] 12:56:00 12:56:00 [facility] [id number] Family Practic e 2020-09-12 2020-09-12 Shannon O VFP [place] - [id number] [facility] 00:00:00 00:00:00 Diane Flood MD: [id number] Medical - Pract ic [place] VM_HOU_East e , [address], ([facility]) [place] [address] , Ph. 2020-09-10 2020-09-10 Outpatient Ige-Odunuga VFP VFP [id number] [facility] 02:49:00 02:49:00 _Marty_KENDAL [id number] Family Practic e 2020-09-10 2020-09-10 Vanesa VFP [place] - [id number] V illage 00:00:00 00:00:00 [facility] Tripp Gross Medical - Practi PIPE FITTER SUPERVISOR MAINTENANCE: [id number] VM_HOU_V@H_ e [facility], [facility] [address], [place] [address] , Ph. 2020-08-11 2020-08-11 Outpatient Middleton-Gor_M VFP VFP [id number] [facility] 07:26:00 07:26:00 [id number] Family Practic e 2020-08-11 2020-08-11 Outpatient [place]-Gor_M VFP VFP [id number] 07:26:00 07:26:00 [id number] Family Practic e 2020-08-11 2020-08-11 Outpatient Middleton-Gor_M VFP VFP [id number] [place] 07:26:00 07:26:00 [id number] Family Practic e 2020-07-28 2020-07-28 Outpatient Middleton-Gor_M_ VFP VFP [id number] [facility] 12:09:00 12:09:00 [facility] [id number] Family Practic e 2020-07-28 2020-07-28 Shannon O VFP [place] - [id number] [facility] 00:00:00 00:00:00 [facility] sivan MD: [id number] Medical - Pract [facility]_HOU_[place] [address], ([facility]) [place] [address] , Ph. 2020-07-14 2020-07-14 Outpatient Middleton-Gor_M VFP VFP [id number] [facility] 03:06:00 03:06:00 [id number] Family Practic e 2020-07-14 2020-07-14 Outpatient Middleton-Gor_M VFP VFP [id number] [facility] 03:06:00 03:06:00 [id number] Family Practic e 2020-06-27 2020-06-27 Outpatient Middleton-Gor_M_ VFP VFP [id number] [place] 09:50:00 09:50:00 JESSEE [id number] Family Practic e 2020-06-25 2020-06-25 Outpatient Ige-Odunuga VFP VFP [phone] [place] 03:04:00 03:04:00 _YAMILA [id number] Family Practic e 2020-06-23 2020-06-23 Outpatient Ige-Odun[place] VFP VFP [phone] [facility] 11:19:00 11:19:00 _YAMILA [id number] Family Practic e 2020-06-18 2020-06-18 Outpatient Middleton-Gor_M_ VFP VFP [phone] [place] 02:39:00 02:39:00 JESSEE 53216 Family Practic e 2020-06-16 2020-06-16 Outpatient Middleton-Gor_M_ VFP VFP [phone] [place] 08:21:00 08:21:00 JESSEE 70874 Family Practic e 2020-06-13 2020-06-13 Outpatient Middleton-Gor_M_ VFP VFP [phone] [place] 02:03:00 02:03:00 JESSEE 43711 Family Practic e 2020-06-13 2020-06-13 Shannon O VFP [place] - [id number] [facility] 00:00:00 00:00:00 Remigio, [facility] Fami sivan LORA: [id number] Medical - Pract [place] [address], ([place] [address] , Ph. 2020-06-06 2020-06-06 Outpatient Middleton-Gor_M_ VFP VFP [phone] [facility] 01:40:00 01:40:00 JESSEE [id number] Family Practic e 2020-06-06 2020-06-06 Outpatient Ige-Odun[place] VFP VFP [id number] [facility] 01:40:00 01:40:00 _YAMILA [id number] Family Practic e 2020-06-06 2020-06-06 Outpatient Middleton-Gor_M_ VFP VFP [phone] [facility] 01:40:00 01:40:00 JESSEE [id number] Family Practic e 2020-06-03 2020-06-03 Outpatient Mustapha_ VFP VFP [phone] [facility] 04:58:00 04:58:00 WAG 37610 Family Practic e 2020-04-07 2020-04-07 Outpatient Ige-Odunuga VFP VFP [phone] [facility] 10:36:00 10:36:00 _J_AH 74858 Family Practic e 2020-03-20 2020-03-20 Outpatient Ige-Odunuga VFP VFP [phone] [facility] 07:58:00 07:58:00 _J_AH 66628 Family Practic e 2020-03-17 2020-03-17 Kyala O VFP [place] - [id number] [facility] 00:00:00 00:00:00 [place] Jesús betancur PIPE FITTER SUPERVISOR MAINTENANCE: Medical - Practi c 9235 Es VM_HOU_V@H_ e [facility], [place] [address], [place] [address] , Ph. 2020-03-10 2020-03-10 Outpatient Ige-Odunuga VFP VFP [phone] [facility] 04:12:00 04:12:00 _J_AH 42610 Family Practic e 2019-12-28 2019-12-28 Outpatient Ige-Odunuga VFP VFP [phone] [facility] 12:37:00 12:37:00 _J_AH 75188 Family Practic e 2019-11-16 2019-11-16 [facility] [id number] [facility] 11:15:33 23:59:00 ity of [facility] 2019-11-16 2019-11-16 [facility] [id number] 09:30:00 23:59:00 Encounter Blair Varela [id number] [place] [id number] [place] [id number] 2019-11-16 2019-11-16 Orders Doctor DHAVAL [id number] 00:00:00 00:00:00 Only Unassigned, BHAVIN [id number] [place] [facility] [id number] [id number] [id number] Results Test Description Test Time Test Comments Results Result Comments Source Helicobacter pylori [Presence] in Stomach by urea alhaji th test 2021-10-25 00:00:00 Test Item Value Reference Range Interpretation Comme nts helicobacter pylori, urea breath test (test code = not detected not detected helicobacter pylori, urea breath test) [facility] + occult blood screening, [id number] 11:50:00 Test Item Value Reference Range Interpretation Comments cologuard result reportable (test negative not applicable code = cologuard result reportable) [facility] W Reflex Culture panel - Urine 2021-02-21 11:52:00 Test Item Value Reference Range Interpretation Comments color (test code = yellow yellow color) appearance (test code clear clear = appearance) specific gravity 1.003 1.001-1.035 (test code = specific gravity) pH (test code = pH) > or = 8.5 5.0-8.0 A glucose (test code = negative negative glucose) bilirubin (test code negative negative = bilirubin) ketones (test code = negative negative ketones) occult blood (test negative negative code = occult blood) protein (test code = negative negative protein) nitrite (test code = negative negative nitrite) leukocyte esterase trace negative A (test code = leukocyte esterase) WBC (test code = WBC) none seen See_Comment [Auto mated message] The system [facility] generated this result transmitted ref erence range: < or = 5 . The reference range was not used to int erpret this result as normal/abnormal . RBC (test code = RBC) none seen See_Comment [Auto mated message] The system [facility] generated this result transmitted ref erence range: < or = 2 . The reference range was not used to int erpret this result as normal/abnormal . squamous epithelial none seen See_Comment [Automa sean message] cells (test code = The syste m which squamous epithelial generate d this result cells) transmitted ref erence range: < or = 5 . The reference range was not used to int erpret this result as normal/abnormal . bacteria (test code = none seen none seen bacteria) hyaline cast (test none seen none seen code = hyaline cast) [facility] identified in Urine by [id number] 11:52:00Reflexive Urine CultureViSur[facility] HospitalBacteria identified in Urine by [id number] 11:52:00 Test Item Value Reference Range Interpretation Comments culture, urine, routine (test code = see note culture, urine, routine) [facility] 2000 panel - Serum or Plasma 2021-02-20 13:16:00 Test Item Value Reference Range Interpretation Comments ALT (test code = ALT) 13 U/L 0-55 AST (test code = AST) 19 U/L 5-34 BUN (test code = BUN) 10.9 mg/dL 9.8-25.0 alk phos (test code = alk phos) 95 unit/L 40-150 glucose (test code = glucose) 91 mg/dL 70-99 albumin (test code = albumin) 4.2 g/dL 3.4-5.1 creatinine (test code = 0.70 mg/dL 0.57-1.11 creatinine) eGFR non- (test >60 code = eGFR non-) total bilirubin (test code = 0.6 mg/dL 0.2-1.2 total bilirubin) eGFR - (test >60 code = eGFR - ) sodium (test code = sodium) 141 mEq/L 135-145 potassium (test code = potassium) 5.1 mEq/L 3.5-5.3 chloride (test code = chloride) 107 mmol/L 98-110 total protein (test code = total 7.5 g/dL 6.1-8.2 protein) calcium (test code = calcium) 9.7 mg/dL 8.4-10.4 CO2 (test code = CO2) 30.4 mmol/L 20.0-32.0 anion gap (test code = anion gap) 4 calc [facility] Differential panel - [id number] 12:54:00 Test Item Value Reference Range Interpretation Comments WBC (test code = WBC) 7.55 x10*3/?L 3.98-10.04 RBC (test code = RBC) 5.22 10*12/L 3.93-5.22 hemoglobin (test code = 14.60 g/dL 11.20-15.70 hemoglobin) hematocrit (test code = 45.6 % 34.1-44.9 H hematocrit) MCV (test code = MCV) 87.4 fL 80.0-100.0 MCH (test code = MCH) 28.0 pg 25.6-32.2 MCHC (test code = MCHC) 32.0 g/dL 32.2-35.5 L RDW-SD (test code = RDW-SD) 42.6 fL 36.4-46.3 platelet count (test code = 355.0 k/uL 182.0-369.0 platelet count) MPV (test code = MPV) 11.1 fL 7.5-11.5 neut% (test code = neut%) 55.5 % 34.0-71.1 lymph% (test code = lymph%) 34.4 % 19.3-51.7 mon% (test code = mon%) 6.6 % 4.7-12.5 eos% (test code = eos%) 2.4 % 0.7-5.8 baso% (test code = baso%) 0.8 % 0.1-1.2 neut# (test code = neut#) 4.2 x10*3/?L 1.6-6.1 lymph# (test code = lymph#) 2.6 x10*3/?L 1.2-3.7 mon# (test code = mon#) 0.5 x10*3/?L 0.2-0.9 eos# (test code = eos#) 0.18 x10*3/?L 0.04-0.36 baso# (test code = baso#) 0.06 x10*3/?L 0.01-0.08 [facility] [Enzymatic activity/volume] in Serum or Plasma 2021-02-20 08:45:00 Test Item Value Reference Range Interpretation Comments lipase (test code = lipase) 40 U/L 7-60 [facility] [Enzymatic activity/volume] in Serum or Plasma 2021-02-20 08:45:00 Test Item Value Reference Range Interpretation Comments amylase (test code = amylase) 74 U/L 21-101 [facility]
[2022-09-21] MEDS ORDERED: ONDANSETRON 4 MG/2 ML VIAL ONE (02:29)
[2022-09-21] MEDS ORDERED: NA CHLORIDE 0.9% 1,000 ML ONE (02:30)
[2022-09-21 02:58] LABS: Absolute Lymphocytes (CBC) 0.6 K/uL (0.7-4.9); Hematocrit 39.2 % (36.0-45.0); Lymphocytes % 7.6 % (15.3-44.8); MPV 8.3 fL (7.6-11.3); RBC Red Blood Cell Count 4.61 M/uL (3.86-4.86)
[2022-09-21 03:15] LABS: Albumin 3.5 g/dL (3.4-5.0); Bilirubin Total 0.3 mg/dL (0.2-1.0); Potassium 3.3 mmol/L (3.5-5.1); Protein, Total 7.5 g/dL (6.4-8.2)
[2022-09-21 03:53] LABS: SARS-COV-2 RT PCR POSITIVE (NEGATIVE)
[2022-09-21 05:14] LABS: Urine Blood Trace-intact (Negative); Urine Glucose Negative (Negative); Urine Protein Negative (Negative); Urine Specific Gravity 1.015 (1.005-1.030); Urine pH 8.5 (5.0-7.0)
--- NOTE | 2022-09-21 05:21 | ER ---
Nurse's Notes [facility] Name: Seble Tirado Age: 67 yrs Sex: Female : 1955 Arrival Date: 09/21/2022 Time: 02:10 Bed 8 Private MD: Diagnosis: SARS-associated coronavirus as the cause of diseases classified elsewhere;Vomiting, unspecified;Dehydration Presentation: 09/21 02:14 Chief complaint: EMS states: Pt called EMS reporting N/V around 2300 after eating jb4 chick-cinthia-a. Pt reports vomiting multiple times tonight, is unsure of how many. Coronavirus screen: At this time, the client does not indicate any symptoms associated with coronavirus-19. Ebola Screen: No symptoms or risks identified at this time. Initial Sepsis Screen: Does the patient meet any 2 criteria? No. Patient's initial sepsis screen is negative. Does the patient have a suspected source of infection? No. Patient's initial sepsis screen is negative. Risk Assessment: Do you want to hurt yourself or someone else? Patient reports no desire to harm self or others. Onset of symptoms was September 20, 2022. Transition of care: patient was not received from another setting of care. 02:14 Method Of Arrival: EMS: [facility] jb4 02:14 Acuity: TIFFANIE 3 jb4 Historical: - Allergies: 02:16 PENICILLINS; jb4 - PMHx: 02:16 arthritis; jb4 - Family history:: not pertinent. - Hospitalizations: : No recent hospitalization is reported. Screenin:10 Abuse screen: Denies threats or abuse. Nutritional screening: No deficits noted. jb4 Tuberculosis screening: No symptoms or risk factors identified. Fall Risk Assessment: 02:17 General: Appears in no apparent distress. comfortable, Behavior is calm, cooperative, jb4 appropriate for age. Pain: Denies pain. Neuro: Level of Consciousness is awake, alert, obeys commands, Oriented to person, place, time, situation. Cardiovascular: Patient's skin is warm and dry. Respiratory: Airway is patent Trachea midline Respiratory effort is even, unlabored, Respiratory pattern is regular, symmetrical. GI: Abdomen is flat, non-distended, Abd is soft and non tender X 4 quads. Reports nausea, vomiting. : No signs and/or symptoms were reported regarding the genitourinary system. EENT: No signs and/or symptoms were reported regarding the EENT system. Derm: Skin is intact, Skin is pink, warm \T\ dry. Musculoskeletal: Circulation, motion, and sensation intact. Range of motion: intact in all extremities. 03:20 Reassessment: Patient appears in no apparent distress at this time. Patient and/or jb4 family updated on plan of care and expected duration. Pain level reassessed. Patient is alert, oriented x 3, equal unlabored respirations, skin warm/dry/pink. 03:52 Reassessment: Patient appears in no apparent distress at this time. Patient and/or jb4 family updated on plan of care and expected duration. Pain level reassessed. Patient is alert, oriented x 3, equal unlabored respirations, skin warm/dry/pink. 05:00 Reassessment: Patient appears in no apparent distress at this time. Patient and/or jb4 family updated on plan of care and expected duration. Pain level reassessed. Patient is alert, oriented x 3, equal unlabored respirations, skin warm/dry/pink. 05:37 Reassessment: Patient appears in no apparent distress at this time. Patient and/or jb4 family updated on plan of care and expected duration. Pain level reassessed. Patient is alert, oriented x 3, equal unlabored respirations, skin warm/dry/pink. Vital Signs: 02:14 BP 123 / 67; Pulse 88; Resp 16; Temp 99.5(O); Pulse Ox 100% on R/A; Weight 49.44 kg jb4 (R); Height 5 ft. 1 in. (154.94 cm) (R); Pain 0/10; 03:00 BP 115 / 65; Pulse 87; Resp 16; Pulse Ox 100% on R/A; jb4 03:53 BP 113 / 62; Pulse 87; Resp 16; Pulse Ox 99% on R/A; jb4 05:30 BP 105 / 59; Pulse 85; Resp 16; Pulse Ox 98% on R/A; jb4 02:14 Body Mass Index 20.60 (49.44 kg, 154.94 cm) jb4 ED Course: 02:10 Patient arrived in ED. rn 02:10 Rom Ferro MD is Attending Physician. rn 02:10 Patient has correct armband on for positive identification. Placed in gown. Bed in low jb4 position. Call light in reach. Side rails up X 1. 02:16 Triage completed. jb4 02:16 Arm band placed on right wrist. jb4 02:18 Jaycob Cole, RN is Primary Nurse. jb4 02:27 COVID-19/FLU A+B Sent. jb4 02:40 Initial lab(s) drawn, by me. Inserted saline lock: 20 gauge in right antecubital area, jb4 using aseptic technique. Blood collected. 03:43 CT Abd/Pelvis - IV Contrast Only In Process Unspecified. EDMS 05:39 No provider procedures requiring assistance completed. IV discontinued, intact, jb4 bleeding controlled, No redness/swelling at site. Pressure dressing applied. Administered Medications: 02:43 Drug: NS 0.9% 1000 ml Route: IV; Rate: 1 bolus; Site: right antecubital; jb4 04:00 Follow up: Response: No adverse reaction; IV Status: Completed infusion; IV Intake: jb4 1000ml 02:43 Drug: Zofran (Ondansetron) 4 mg Route: IVP; Site: right antecubital; jb4 03:15 Follow up: Response: No adverse reaction; Marked relief of symptoms; Nausea is decreasedjb4 Medication: 05:30 VIS not applicable for this client. jb4 Intake: 04:00 IV: 1000ml; Total: 1000ml. jb4 Outcome: 05:21 Discharge ordered by . rn 05:40 Discharged to home ambulatory. jb4 05:40 Condition: stable 05:40 Discharge instructions given to patient, Instructed on discharge instructions, follow up and referral plans. medication usage, Demonstrated understanding of instructions, follow-up care, medications, Prescriptions given X 1. 05:40 Patient left the ED. jb4 Signatures: Dispatcher [employer] EDRI Rom Ferro MD MD rn Bryson, James, RN RN jb4 Corrections: (The following items were deleted from the chart) 05:40 02:40 Discharged to home ambulatory, jb4 jb4 05:40 02:40 Condition: stable jb4 jb4 05:40 02:40 Discharge instructions given to patient, Instructed on discharge instructions, jb4 follow up and referral plans. medication usage, Demonstrated understanding of instructions, follow-up care, medications, Prescriptions given X 1, jb4
--- NOTE | 2022-09-21 05:21 | EDPHYS ---
Physician Documentation [facility] Name: Seble Tirado Age: 67 yrs Sex: Female : 1955 Arrival Date: 09/21/2022 Time: 02:10 Bed 8 Private MD: ED Physician Rom Ferro HPI: 09/21 02:41 This 67 yrs old Female presents to ER via EMS with complaints of rn nausea/vomiting. 02:41 The patient presents to the emergency department with nausea, vomiting, abdominal pain. rn Onset: The symptoms/episode began/occurred yesterday. Possible causes: unknown. The symptoms are aggravated by nothing. The symptoms are alleviated by nothing. Associated signs and symptoms: Pertinent positives: abdominal pain, nausea, vomiting, Pertinent negatives: fever, GI bleeding. Severity of symptoms: At their worst the symptoms were moderate in the emergency department the symptoms are unchanged. The patient has not experienced similar symptoms in the past. The patient has not recently seen a physician. Historical: - Allergies: 02:16 PENICILLINS; jb4 - PMHx: 02:16 arthritis; jb4 - Family history:: not pertinent. - Hospitalizations: : No recent hospitalization is reported. ROS: 02:41 Constitutional: Negative for fever, + for chills Eyes: Negative for injury, pain, rn redness, and discharge, Neck: Negative for injury, pain, and swelling, Cardiovascular: Negative for chest pain, palpitations, and edema, Respiratory: Negative for shortness of breath, cough, wheezing, and pleuritic chest pain, Abdomen/GI: + abd pain and nausea/vomiting Back: Negative for injury and pain, MS/Extremity: Negative for injury and deformity, Skin: Negative for injury, rash, and discoloration, Neuro: Negative for headache, weakness, numbness, tingling, and seizure. Exam: 02:41 Constitutional: This is a well developed, well nourished patient who is awake, alert, rn and in no acute distress. Head/Face: Normocephalic, atraumatic. Cardiovascular: Regular rate and rhythm. No pulse deficits. Respiratory: No increased work of breathing, no retractions or nasal flaring. Abdomen/GI: soft, mild mid abd tenderness, no rebound or masses Skin: Warm, dry MS/ Extremity: Pulses equal, no cyanosis. Neuro: Awake and alert, GCS 15 Vital Signs: 02:14 BP 123 / 67; Pulse 88; Resp 16; Temp 99.5(O); Pulse Ox 100% on R/A; Weight 49.44 kg jb4 (R); Height 5 ft. 1 in. (154.94 cm) (R); Pain 0/10; 03:00 BP 115 / 65; Pulse 87; Resp 16; Pulse Ox 100% on R/A; jb4 03:53 BP 113 / 62; Pulse 87; Resp 16; Pulse Ox 99% on R/A; jb4 05:30 BP 105 / 59; Pulse 85; Resp 16; Pulse Ox 98% on R/A; jb4 02:14 Body Mass Index 20.60 (49.44 kg, 154.94 cm) jb4 MDM: 02:10 Patient medically screened. rn 05:19 Differential diagnosis: Nonspecific abd pain, gastritis, diverticulitis, viral rn gastroenteritis, gastroenteritis. Data reviewed: vital signs, nurses notes, lab test result(s), radiologic studies, CT scan, and as a result, I will discharge patient. Counseling: I had a detailed discussion with the patient and/or guardian regarding: the historical points, exam findings, and any diagnostic results supporting the discharge/admit diagnosis, lab results, radiology results, the need for outpatient follow up, to return to the emergency department if symptoms worsen or persist or if there are any questions or concerns that arise at home. Response to treatment: the patient's symptoms have markedly improved after treatment, and as a result, I will discharge patient. Special discussion: I discussed with the patient/guardian in detail that at this point there is no indication for admission to the hospital. It is understood, however, that if the symptoms persist or worsen the patient needs to return immediately for re-evaluation. 09/21 02:11 Order name: CBC with Diff; Complete Time: 03:06 rn 09/21 02:11 Order name: CMP; Complete Time: 03:25 rn 09/21 02:11 Order name: Lipase; Complete Time: 03:25 rn 09/21 02:11 Order name: CT Abd/Pelvis - IV Contrast Only rn 09/21 02:11 Order name: COVID-19/FLU A+B; Complete Time: 03:54 rn 09/21 05:14 Order name: Urine Dipstick-Ancillary; Complete Time: 05:18 EDMS 09/21 02:11 Order name: IV Saline Lock; Complete Time: :43 rn 09/21 02:11 Order name: Labs collected and sent; Complete Time: 43 rn 09/21 02:11 Order name: Urine Dipstick-Ancillary (obtain specimen); Complete Time: 05:16 rn Administered Medications: 02:43 Drug: NS 0.9% 1000 ml Route: IV; Rate: 1 bolus; Site: right antecubital; jb4 04:00 Follow up: Response: No adverse reaction; IV Status: Completed infusion; IV Intake: jb4 1000ml 02:43 Drug: Zofran (Ondansetron) 4 mg Route: IVP; Site: right antecubital; jb4 03:15 Follow up: Response: No adverse reaction; Marked relief of symptoms; Nausea is decreasedjb4 Disposition Summary: 09/21/22 05:21 Discharge Ordered Location: Home rn Problem: new rn Symptoms: have improved rn Condition: Stable rn Diagnosis - SARS-associated coronavirus as the cause of diseases classified elsewhere rn - Vomiting, unspecified rn - Dehydration rn Followup: rn - With: Private Physician - When: As needed - Reason: Recheck today's complaints, Re-evaluation by your physician Discharge Instructions: - Discharge Summary Sheet rn - Nausea and Vomiting, Adult rn - COVID-19 rn - 10 Things You Can Do to Manage Your COVID-19 Symptoms at Home - CDC rn - Viral Illness, Adult rn Forms: - Medication Reconciliation Form rn - Thank You Letter rn - Antibiotic ornamental ironworker - Prescription Opioid Use rn Prescriptions: - ondansetron 4 mg Oral tablet,disintegrating - take 1 tablet by ORAL route every 8 hours As needed; 15 tablet; Refills: 0, rn Product Selection Permitted Signatures: Dispatcher [employer] EDRom Powell MD MD rn Bryson, James RN RN jb4
[2022-09-21 05:50] VITALS: TEMP 99.5
[2022-09-21 06:07] VITALS: BP 105/59; O2SAT 98
--- NOTE | 2022-09-21 17:49 | RAD REPORT ---
EXAM DESCRIPTION: CT - Abdomen Pelvis W Contrast - 09/21/2022 7:05 am CLINICAL HISTORY: The patient is 67 years old and is Female; abd pain, fever, vomiting TECHNIQUE: Axial computed tomography images of the abdomen and pelvis with intravenous contrast. S agittal and coronal reformatted images were created and reviewed. This CT exam was performed using one or more of the following dose reduction techniques: automated exposure control, adjustment of t he mA and/or kV according to patient size, and/or use of iterative reconstruction technique. COMPARISON: No relevant prior studies available. FINDINGS: Limitations: Evaluation limited by motion artifact. Lung bases: Unremarkable. No m ass. No consolidation.ABDOMEN: Liver: Unremarkable. No mass. Gallbladder and bile ducts: Unremarkable. No calcified stones. No ductal dilation. Pancreas: Unremarkable. No mass. No ductal dilation. Spleen: Unremarkable. No splenomegaly. Adrenals: Unremarkable. No ma ss. Kidneys and ureters: Slightly heterogeneous appearance to the kidneys bilaterally which may b e due to artifact. No hydronephrosis. Stomach and bowel: Scattered colonic diverticula. No obstruction. No mucosal thickening.PELVIS: Appendix: No findings to suggest acute a ppendicitis. Bladder: Unremarkable. Reproductive: Uterus is not seen.ABDOMEN and PELVIS: I ntraperitoneal space: Unremarkable. No free air. No significant fluid collection. Bones/joint s: Disc space narrowing with degenerative endplate changes in the spine. No acute fracture. No dislocation. Soft tissues: Unremarkable. Vasculature: Unremarkable. No abdominal aort ic aneurysm. Lymph nodes: Unremarkable. No enlarged lymph nodes. IMPRESSION: 1. Slightly heterogeneous appearance to the kidneys bilaterally which may be due to ar tifact. Correlate with any concern for infection. 2. Scattered colonic diverticula. 3. Evaluati on limited by motion artifact. 4. Additional non-emergent findings as above. Electronically signed by: Michael Quezada MD 09/21/2022 4:23 AM [employer] BUSINESS DEVELOPMENT OFFICER Due to temporary technical issues with the PACS/Fluency reporting system, reports are being signed by the in house radiologists without review as a courtesy to insure prompt reporting. The interpreting radiologist is fully responsible for the content of the report.
== END 2022-09-21 05:40 | disposition home or self-care (01) ==
LOC: ER 02:07
DX: U07.1 COVID-19 (principal); E86.0 Dehydration; Z88.0 Allergy status to penicillin
CPT/HCPCS: 85025; 36415; 81003; 83690; 80053; 0240U; 74177; Q9967; J7030; J2405